=== PATIENT | female | born 1985 | race Asian ===

== ENCOUNTER 2020-04-28 04:13 | Inpatient (IN) ==
[2020-04-28] MEDS ORDERED: OXYTOCIN 30 UNITS/500 ML BAG IV PRN ×2 (04:57→06:07)
[2020-04-28] MEDS ORDERED: LACTATED RINGER'S 1,000 ML IV PRN (04:57)
--- NOTE | 2020-04-28 05:05 | History & Physical Report ---
Date of Service April 28, 2020 Assessment & Plan (1) Normal labor: Admission and Anticipated Discharge Date Admission Date: multiparous female in active labor requesting epidural analgesia anticipate vaginal delivery. History of Present Illness Primary Care Provider: NO PCP Patient is a 35 yo female with an EDC 05/06/20 who presents with regular contractions since 0200. no bloody show or SPROM. contractions are now 3-5 minutes apart. GBS -negative. complicated by diet controlled GDM. last AC was 34 % at 36 weeks. Allergies Allergy/AdvReac Type Severity Reaction Status Date / Time No Known Drug Allergies Allergy Unknown none Verified 04/21/20 09:50 Home Medications Medication Instructions Recorded Confirmed Type acetone (urine) test #50 ea 11/07/19 04/21/20 Rx blood sugar diagnostic #150 ea 11/07/19 04/21/20 Rx lancets 33 gauge #150 ea 11/07/19 04/21/20 Rx prenat.vits,martha,okv-bfyd-mawwi 1 tab PO DAILY 02/11/20 04/21/20 History calcium acetate PO 02/25/20 04/21/20 History Patient History Medical History Encounter for anatomic survey GDM (gestational diabetes mellitus) Missed Varicella Surgical History H/O oral surgery Family History Mother Diabetes Grandmother (Maternal) Diabetes Hypertension Social History Smoking Status: Never smoker Second Hand Exposure: No; Do You Dip or Chew Tobacco: No; Hx Alcohol Use: No Hx Substance Use: No Preferred Language: Korean Communication Ability: Effective Soaker Meat Required: No Beliefs That Will Affect Care: None marital status: marital status details: Binh Farah (33) [phone] Current Living Situation: Family Current Living Situation Comment: lives with spouse and child, no pets current occupational status: unemployed current occupation: homemaker Other Information That Helps Us Care for You: No Feels Safe at Home: Yes Safety Concerns: Feels Safe At This Time Assistive Devices: None Review of Systems All systems reviewed & are unremarkable except as noted in HPI & below Physical Exam Constitutional: WD/WN, vitals as above Respiratory: normal respiratory effort, lungs clear to auscultation Cardiovascular: RRR, no murmur, no edema Gastrointestinal (Abdomen): normal bowel sounds, soft, nontender, no hepatosplenomegaly Psychiatric: A+Ox3, euthymic affect Genitourinary: OB Exam Abdomen: + vertex and + regular contractions Manual OB Exam: + cervical dilation 5 cm, + cervical effacement 100% and + station -2 OB Exam Monitor Tracing: + external FHT monitor used, + external uterine monitor used, + category I and + normal FHT variability Results & Data ([facility]) Vital Signs (Past 12 Hours) Vital Signs Temp Pulse Resp BP 04/28/20 04:35 98.0 F 60 18 133/64 04/28/20 04:25 60 133/64 Coding Level of Care Code None Diagnoses Normal labor O80; Z37.9
[2020-04-28] MEDS ORDERED: SODIUM CHLORIDE 0.9% INJ 10 ML VIAL ONE (05:12)
[2020-04-28] MEDS ORDERED: ePHEDrine sulfate 50 MG/ML AMP ONE (05:12)
[2020-04-28] MEDS ORDERED: BUPIVACAINE 0.25% 30 ML VIAL ONE (05:13)
[2020-04-28] MEDS ORDERED: fentaNYL citrate 100 MCG/2 ML VIAL ONE (05:13)
[2020-04-28] MEDS ORDERED: fentaNYL 2MCG/ML ROPIVACAINE 1.25MG/ML 100 ML BAG EPI ONE (05:14)
[2020-04-28 05:21] LABS: Hematocrit (blood only) 33.5 % (37-47); Hemoglobin 10.4 g/dL (12.0-16.0); Mean Corpuscular Hemoglobin 25.6 pg (25-34); Mean Corpuscular Volume 82.5 fL (80-100); Mean Platelet Volume 8.9 fL (7.4-10.4); Platelet Count 198 K/uL (130-400); RDW Coefficient of Variation 14.9 % (11.5-14.5); RDW Standard Deviation 44.9 fL (36.4-46.3); Red Blood Count 4.06 M/uL (4.2-5.4); White Blood Count 9.13 K/uL (4.8-10.8)
[2020-04-28] MEDS ORDERED: LIDOCAINE HCL 1% 20 ML VIAL ONE ×2 (05:42→05:52)
[2020-04-28] MEDS ORDERED: bisacodyL 10 MG SUPP PR PRN (06:07)
[2020-04-28] MEDS ORDERED: SUPERCREAM 0.870% 15 GM JAR EXT PRN (06:07)
[2020-04-28] MEDS ORDERED: HYDROCORTISONE ACETATE 25 MG SUPP PR PRN (06:07)
[2020-04-28] MEDS ORDERED: BENZOCAINE 20% AER SPR 82.5 GM CAN EXT PRN (06:07)
[2020-04-28] MEDS ORDERED: oxyCODONE/ACETAMINOPHEN 5mg/325mg TAB PO PRN (06:07)
[2020-04-28] MEDS ORDERED: ACETAMINOPHEN 325 MG TAB PO PRN (06:07)
[2020-04-28] MEDS ORDERED: DIPHTHERIA/TETANUS/PERTUSSIS 0.5 ML SYR/VIAL IM ONE (06:07)
--- NOTE | 2020-04-28 06:17 | Delivery Summary ---
Vaginal Delivery Summary Date of Service Patient is a 35-year-old 3 para 1-0-1-1 who presents in active labor at 39 weeks gestation . She was 5 cm upon arrival, and rapidly progressed to full dilation. she began to push effectively over intact perineum. A small for bag was ruptured for clear fluid. After delivery of the head the rest of the infant followed easily. The was placed on the mother's abdomen for further attention and drying. The cord was somewhat short and it was cut after 30 seconds of to better situate the baby on the mother's chest. The was vigorous and moving all 4 limbs. The placenta was expressed intact with a three-vessel cord. A second-degree perineal laceration was repaired in the usual fashion with 3-0 chromic. 1% lidocaine was used to anesthetize the area prior to the repair. bleeding was controlled with dilute Pitocin. Mother and infant are doing well after delivery. Estimated blood loss 200 cc. [facility] Vaginal Delivery Charge Vaginal Delivery Codes: 48925 global code for the antepartum, delivery, and post-
[2020-04-28] MEDS: DOCUSATE SODIUM 100 MG CAP PO SCH ×2 (08:31→21:17)
[2020-04-28] MEDS: PRENATAL VITAMIN 1 TAB PO SCH (08:31)
[2020-04-28] MEDS: IBUPROFEN 600 MG TAB PO PRN ×3 (10:10→21:17)
--- NOTE | 2020-04-29 06:44 | Obstetrical Progress Note ---
Date of Service April 29, 2020 Assessment & Plan (1) Diet controlled gestational diabetes mellitus (GDM), antepartum: - doing well - desires d/c - instructions given - f/u in 6 weeks pp check Subjective Ambulation: ambulating normally Voiding: no voiding problems Diet Tolerance:: regular diet Feeding Type:: breast feeding Physical Exam Constitutional WD/WN, vitals as above Gastrointestinal (Abdomen) Fundus firm below umbilicus Musculoskeletal No deep calf tenderness Results & Data ([facility]) Vital Signs (Past 12 Hours) Vital Signs Temp Pulse Resp BP 04/29/20 05:05 98.2 F 69 18 102/66 04/28/20 19:55 97.7 F 73 16 107/66
[2020-04-29 07:12] LABS: Hematocrit (blood only) 28.8 % (37-47); Hemoglobin 8.9 g/dL (12.0-16.0); Mean Corpuscular Hemoglobin 25.8 pg (25-34); Mean Corpuscular Hgb Conc 30.9 g/dL (32-36); Mean Corpuscular Volume 83.5 fL (80-100); Mean Platelet Volume 9.1 fL (7.4-10.4); Platelet Count 210 K/uL (130-400); RDW Coefficient of Variation 15.2 % (11.5-14.5); Red Blood Count 3.45 M/uL (4.2-5.4); White Blood Count 8.11 K/uL (4.8-10.8)
[2020-04-29] MEDS: DOCUSATE SODIUM 100 MG CAP PO SCH (09:22)
[2020-04-29] MEDS: PRENATAL VITAMIN 1 TAB PO SCH (09:22)
[2020-04-29] MEDS: IBUPROFEN 600 MG TAB PO PRN (09:24)
[2020-04-29] MEDS ORDERED: bisacodyL 5 MG TABEC PO SCH (20:00)
== END 2020-04-29 16:15 | disposition home or self-care (01) | DRG 807 ==
LOC: OPB 04:13 → 4S1 04:17 → 4S2 08:20